=== PATIENT | male | born 2005 | race Two or more races ===

== ENCOUNTER 2024-09-14 20:57 | Emergency (ER) | payer OTHER ==
[~2024-09-14] VITALS: Ht 172.7 cm; Wt 69.9 kg
[2024-09-14] MEDS ORDERED: 0.9 % SODIUM CHLORIDE 1,000 ML IV STA (21:29)
[2024-09-14 22:31] LABS: BASO % 0.8 % (0.1-1.2); EOS # 0.15 (0.04-0.54); EOS % 1.8 % (0.7-7.0); HEMATOCRIT 42.7 % (40.1-51.0); HEMOGLOBIN 14.6 g/dL (13.7-17.5); LYMPH # 2.18 (1.18-3.74); LYMPH % 25.6 % (19.3-53.1); MEAN CORPUSCULAR HEMOGLOBIN 28.6 pg (25.6-32.2); MONO # 0.68 (0.24-0.82); NEUT % 63.6 % (34.0-71.1); PLATELET COUNT 249 K/uL (163-369); RED BLOOD COUNT 5.11 M/uL (4.63-6.08); RED CELL DISTRIBUTION WIDTH 11.6 % (11.6-14.4)
[2024-09-14 23:09] LABS: ALBUMIN 4.3 gm/dL (3.4-5.0); ALKALINE PHOSPHATASE 74 U/L (50-136); ALT/SGPT 29 U/L (12-78); AMYLASE 73 U/L (25-115); ANION GAP 9 (10.0-20.0); AST/SGOT 16 U/L (15-37); BILIRUBIN TOTAL 0.36 mg/dL (0.3-1.2); BLOOD UREA NITROGEN 24 mg/dL (7-18); BUN CREA RATIO 24 (7.0-25.0); CALCIUM 9.7 mg/dL (8.5-10.1); CARBON DIOXIDE 27 mEq/L (21-32); CHLORIDE 109 mmol/L (98-107); GFR 95.26; GLOBULINA 3.6 G/DL (2.4-3.5); GLUCOSE FASTING 91 mg/dL (65-100); OSMOLALITY SERUM 285 MOSM/KG (275-295); POTASSIUM 4.28 mEq/L (3.5-5.1); SODIUM 141 mmol/L (136-145); TOTAL PROTEIN 7.9 gm/dL (6.4-8.2)
[2024-09-14 23:39] LABS: URINE APPEARANCE Clear; URINE BILIRRUBIN Negative (NEGATIVE); URINE BLOOD Negative; URINE COLOR Yellow; URINE GLUCOSE Negative (NEGATIVE); URINE KETONE Negative (NEGATIVE); URINE LEUKOCYTE Negative; URINE NITRATE Negative; URINE PROTEIN Negative (NEGATIVE); URINE UROBILINOGEN 0.2 E.U./dl
[2024-09-14 23:46] LABS: URINE RBC 2.2 uL (0.0-20.8)
[2024-09-14 23:48] LABS: C-REACTIVE PROTEIN < 0.29 MG/DL (0.00-0.29); LIPASE 105 U/L (13-75)
[2024-09-14 23:51] LABS: TYPE CELLS SQUAMOUS; URINE BACTERIA 1.2 uL (0.0-1933); URINE EPITHELIAL CELLS 0.1 uL (0.0-38.8); URINE WBC 0.7 uL (0.0-23.2)
== END 2024-09-15 03:59 | disposition home or self-care (01) ==
LOC: ER 21:13 → EMR PED 21:13
DX: R10.84 Generalized abdominal pain (principal); M54.89 Other dorsalgia